=== PATIENT | female | born 1945 | race Caucasian/White ===

== ENCOUNTER 2020-11-14 18:18 | Emergency (ER) | payer MEDICAID ==
[~2020-11-14] VITALS: Ht 162.6 cm; Wt 63.0 kg
[2020-11-14] MEDS ORDERED: LIDOCAINE HCL/EPINEPHRINE 1%-EPI 1:100,000 50 ML VIAL INFIL ONE (19:45)
[2020-11-14] MEDS ORDERED: LIDOCAINE HCL/EPINEPHRINE 1%-EPI 1:100,000 20 ML VIAL INFIL ONE (19:45)
[2020-11-14 20:32] LABS: BASOPHILS % 0.8 % (0.0-2.0); EOSINOPHILS % 2.7 % (0.0-5.0); HEMATOCRIT. 34.9 % (36.0-48.0); HEMOGLOBIN. 11.4 g/dL (12.0-16.0); LYMPHOCYTES % 24.9 % (20.0-50.0); MEAN CORPUSCULAR HEMOGLOBIN 26.3 pg (28.0-32.0); MEAN CORPUSCULAR VOLUME 80.7 fL (81.0-99.0); MEAN PLATELET VOLUME 8.5 fl (7.4-10.4); MONOCYTES % 4.2 % (2.0-8.0); NEUTROPHILS % 67.4 % (40.0-76.0); PLATELET 290 x1000/uL (130-400); RED BLOOD CELL COUNT 4.32 mill/uL (4.2-5.4); RED CELL DISTRIBUTION WIDTH 14.4 % (11.6-14.6)
[2020-11-14 20:35] LABS: CHLORIDE 105 mEq/L (98-107)
[2020-11-14 20:38] LABS: PROTHROMBIN TIME 10.5 sec (9.6-11.0)
[2020-11-14] MEDS ORDERED: TETANUS, DIPHTHERIA, PERTUSSIS VAC/PF 0.5ML (>7YR OLD) IM ONE (22:30)
[2020-11-14 23:36] VITALS: BP 166/67
== END 2020-11-14 23:40 | disposition home or self-care (01) ==
LOC: ER 18:18
DX: S01.81XA Laceration without foreign body of other part of head, initial encounter (principal); I49.9 Cardiac arrhythmia, unspecified; E11.9 Type 2 diabetes mellitus without complications; E78.00 Pure hypercholesterolemia, unspecified; I10 Essential (primary) hypertension; W01.0XXA Fall on same level from slipping, tripping and stumbling without subsequent striking against object, initial encounter; Y93.89 Activity, other specified; Y92.9 Unspecified place or not applicable
CPT/HCPCS: 12002; 36415; 70450; 72125; 80053; 85025; 85610; 90471; 90715; 93005; 99285; Z7610

== ENCOUNTER 2023-05-25 20:31 | Emergency (ER) | payer MEDICAID ==
[~2023-05-25] VITALS: Ht 162.6 cm; Wt 69.0 kg
[2023-05-25 20:33] VITALS: O2SAT 96
[2023-05-25 21:31] LABS: BASOPHILS % 0.9 % (0.0-2.0); DIFFERENTIAL COMMENT 0; EOSINOPHILS % 0.2 % (0.0-5.0); HEMATOCRIT. 40.8 % (36.0-48.0); HEMOGLOBIN. 11.3 g/dL (12.0-16.0); LYMPHOCYTES % 8.4 % (20.0-50.0); MEAN CORPUSCULAR HEMOGLOBIN 27.6 pg (28.0-32.0); MEAN CORPUSCULAR HGB CONC 27.5 g/dL (31.0-37.0); MEAN CORPUSCULAR VOLUME 100.4 fL (81.0-99.0); MEAN PLATELET VOLUME 11.5 fl (7.4-10.4); MONOCYTES % 3.1 % (2.0-8.0); NEUTROPHILS % 87.4 % (40.0-76.0); PLATELET 87 x1000/uL (130-400); RED BLOOD CELL COUNT 4.07 mill/uL (4.2-5.4); RED CELL DISTRIBUTION WIDTH 20.6 % (11.6-14.6); WHITE BLOOD COUNT 3.1 x1000/uL (4.5-11.0)
[2023-05-25 21:38] LABS: INR 1.1; PARTIAL THROMBOPLASTIN TIME 28.5 sec (23.4-31.0); PROTHROMBIN TIME 11.9 sec (9.6-11.0)
[2023-05-25 21:48] LABS: ALANINE AMINOTRANSFERASE 24 IU/L (10-49); ALBUMIN 3.5 g/dL (3.2-4.8); ASPARTATE AMINOTRANSFERASE 36 IU/L (<34); BILIRUBIN TOTAL 0.4 mg/dL (0.1-1.0); CALCIUM 8.3 mg/dL (8.7-10.4); CARBON DIOXIDE 22 mEq/L (21-32); CHLORIDE 86 mEq/L (98-107); TROPONIN I HIGH SENSITIVITY 24 ng/L (3.0-34); UREA NITROGEN BLOOD 55 mg/dL (9-23)
[2023-05-25 22:03] LABS: CREATININE 5.2 mg/dL (0.6-1.0); GLUCOSE 1341 mg/dL (70-105); SODIUM 119 mEq/L (136-145)
[2023-05-25] MEDS: SODIUM CHLORIDE 0.9% 1,000 ML IV ONE (22:34)
[2023-05-25] MEDS: INSULIN LISPRO 100 UNITS/ML SUBCUT NR (22:38)
[2023-05-25] MEDS ORDERED: IPRATROPIUM/ALBUTEROL 0.5-3(2.5)MG/3ML NEB HHN PRN (23:30)
[2023-05-25] MEDS: SODIUM CHLORIDE 0.9% 500 ML IV SCH (23:30)
[2023-05-25] MEDS ORDERED: ONDANSETRON HCL 4MG/2ML INJ IV PRN (23:30)
[2023-05-25] MEDS ORDERED: DEXTROSE 50% WATER 50ML SYRINGE IV PRN (23:30)
[2023-05-25] MEDS: BLOOD SUGAR DIAGNOSTIC STRIP TEST SCH (23:30)
[2023-05-26] LABS: TROPONIN I HIGH SENSITIVITY 23 ng/L (3.0-34)
[2023-05-26 00:47] LABS: POTASSIUM 4.6 mEq/L (3.5-5.1)
[2023-05-26 00:48] LABS: CARBON DIOXIDE 22 mEq/L (21-32); CHLORIDE 87 mEq/L (98-107); UREA NITROGEN BLOOD 60 mg/dL (9-23)
[2023-05-26 00:49] LABS: CALCIUM 8.2 mg/dL (8.7-10.4); PHOSPHORUS 4.6 mg/dL (2.5-4.9)
[2023-05-26 00:53] LABS: CREATININE 5.2 mg/dL (0.6-1.0); GLUCOSE 1289 mg/dL (70-105); SODIUM 119 mEq/L (136-145)
[2023-05-26] MEDS: INSULIN REGULAR (DRIP) 100 UNITS in SODIUM CHLORIDE 0.9% 99 ML IV SCH (01:43)
[2023-05-26 02:21] LABS: BG BASE EXCESS -7.8 mmol/L (-2.0-2.0); BG CARBOXYHEMOGLOBIN 0.9 % (0.5-1.5); BG FRACTION INSPIRED OXYGEN 21; BG HCO3 ACT 17.6 mmol/L (22.0-26.0); BG METHEMOGLOBIN 0.3 % (0.0-1.5); BG OXYGEN SATURATION 92.9 % (92.0-98.5); BG OXYHEMOGLOBIN 91.8 % (94.0-97.0); BG PCO2 35.7 mmHg (35.0-45.0); BG PH 7.311 (7.350-7.450); BG PO2 68.3 mmHg (75.0-100.0); BG VENT MODE ROOM AIR
[2023-05-26 04:09] LABS: BASOPHILS % 0.5 % (0.0-2.0); DIFFERENTIAL COMMENT 0; EOSINOPHILS % 0.1 % (0.0-5.0); HEMATOCRIT. 36.7 % (36.0-48.0); HEMOGLOBIN. 10.6 g/dL (12.0-16.0); LYMPHOCYTES % 12.2 % (20.0-50.0); MEAN CORPUSCULAR HEMOGLOBIN 27.9 pg (28.0-32.0); MEAN CORPUSCULAR HGB CONC 28.9 g/dL (31.0-37.0); MEAN CORPUSCULAR VOLUME 96.3 fL (81.0-99.0); MEAN PLATELET VOLUME 11.4 fl (7.4-10.4); NEUTROPHILS % 84.2 % (40.0-76.0); PLATELET 82 x1000/uL (130-400); RED BLOOD CELL COUNT 3.81 mill/uL (4.2-5.4); RED CELL DISTRIBUTION WIDTH 20.1 % (11.6-14.6); WHITE BLOOD COUNT 2.7 x1000/uL (4.5-11.0)
[2023-05-26] MEDS ORDERED: SODIUM CHLORIDE 3% 500ML IV SOLN IV ONE (04:30)
[2023-05-26 04:41] LABS: CALCIUM 8.2 mg/dL (8.7-10.4); CARBON DIOXIDE 23 mEq/L (21-32); CHLORIDE 90 mEq/L (98-107); CHOLESTEROL 136 mg/dL (<200); HDL CHOLESTEROL 46 mg/dL (>65); LDL CHOLESTEROL 65 mg/dL (5-100); PHOSPHORUS 4.2 mg/dL (2.5-4.9); SODIUM 122 mEq/L (136-145); TRIGLYCERIDE 64 mg/dL (0-150); UREA NITROGEN BLOOD 68 mg/dL (9-23)
[2023-05-26 04:50] LABS: GLUCOSE 1037 mg/dL (70-105)
[2023-05-26 04:51] LABS: CREATININE 5.1 mg/dL (0.6-1.0)
[2023-05-26] MEDS: SODIUM CHLORIDE 3% 200 ML IV NR (05:31)
[2023-05-26] MEDS ORDERED: NOREPINEPHRINE 32 MG in DEXT 5% WATER 218 ML IV PRN (05:45)
[2023-05-26 06:21] VITALS: BP 98/29; PULSE 28; RESP 16; TEMP 97.8
[2023-05-26] MEDS: NOREPINEPHRINE 32 MG in DEXT 5% WATER 218 ML IV PRN (06:21)
== END 2023-05-26 06:50 ==
LOC: ER 20:31 → CANBEDREQ 05-26 08:38
DX: S06.5X0A Traumatic subdural hemorrhage without loss of consciousness, initial encounter (principal); R55 Syncope and collapse; R00.1 Bradycardia, unspecified; I12.0 Hypertensive chronic kidney disease with stage 5 chronic kidney disease or end stage renal disease; E11.22 Type 2 diabetes mellitus with diabetic chronic kidney disease; N18.6 End stage renal disease; Z99.2 Dependence on renal dialysis; X58.XXXA Exposure to other specified factors, initial encounter; Y93.89 Activity, other specified; Y92.89 Other specified places as the place of occurrence of the external cause; Y99.8 Other external cause status
CPT/HCPCS: 80051 ×2; 80053; 80048 ×2; 82010; 83880; 83605; 83735 ×2; 83930; 84100 ×2; 85025 ×2; 85610; 85730; 84484; 36415 ×2; 84145; 71045; 70450; 93005; 99291; 80061; 82962; 84439; 84443; 82805; 82375; 96365; 36600; J1815 ×2; Z7610; J7050